=== PATIENT | male | born 1975 | race Caucasian/White ===

== ENCOUNTER 2019-06-20 05:16 | Inpatient (IN) | payer BC ==
[~2019-06-20] VITALS: Ht 172.7 cm; Wt 82.6 kg
--- NOTE | 2019-06-20 05:35 | NUR ---
PATIENT AMBULATED WITH STABLE GAIT. A/OX4 SPEECH CLEAR SPEAKS IN COMPLETE SENTENCES. PATIENT CAME FOR C/O RLQ ABD PAIN SINCE 1300 YESTERDAY. PAIN LEVEL 6/10 AND NON RADIATING. RESPIRATORY EVEN AND UNLABORED, REPORTS THAT HE IS RECOVERING FROM A COUGH THAT HE HAD OVER THE WEEKEND AND BELIEVES THAT THE PAIN/STRAIN IN HIS ABD COULD BE FROM THE COUGHING EPISODES. NO CARDIOVASCULAR DISTRESS NOTED, ALL PULSES PALPABLE. DENIES ANY N/V/D AT THIS TIME.
--- NOTE | 2019-06-20 05:42 | NUR ---
ERMD AT BEDSIDE MSE
[2019-06-20 05:51] LABS: *BILIRUBIN,URIN NEGATIVE (NEGATIVE); *BLOOD, URINE NEGATIVE (NEGATIVE); *CLARITY,URINE CLEAR (CLEAR); *COLOR,URINE YELLOW (YELLOW); *KETONES,URINE NEGATIVE (NEGATIVE); *UROBILINOGEN,URINE 0.2 E.U./dl (NORMAL); LEUKOCYTE ESTERASE ,URINE NEGATIVE (NEGATIVE); NITRITE, URINE NEGATIVE (NEGATIVE); UGLUCOSE NEGATIVE (NEGATIVE)
[2019-06-20] MEDS ORDERED: IV NORMAL SALINE 1000 ML BAG IV ONE ×2 (06:00→15:22)
[2019-06-20] MEDS ORDERED: KETOROLAC TROMETHAMINE 15 MG INJ IVP ONE (06:00)
[2019-06-20] MEDS ORDERED: KETOROLAC TROMETHAMINE 15 MG INJ ONE (06:06)
[2019-06-20 06:07] LABS: BASOPHILS % (AUTO) 0.1 % (0.0-2.0); HEMATOCRIT 43.7 % (36.7-47.1); HEMOGLOBIN 15.1 g/dL (12.5-16.3); LYMPHOCYTES # (AUTO) 1.3 K/uL (20.0-40.0); LYMPHOCYTES % (AUTO) 13.3 % (20.5-51.5); MEAN CORPUSCULAR HEMOGLOBIN 31.9 uug (23.8-33.4); MEAN CORPUSCULAR HGB CONC 34 g/dL (32.5-36.3); MEAN CORPUSCULAR VOLUME 92.7 fL (73.0-96.2); MONOCYTES % (AUTO) 10.3 % (0.0-11.0); NEUTROPHILS # (AUTO) 7.2 K/uL (1.8-8.9); NEUTROPHILS % (AUTO) 76.3 % (38.5-71.5); PLATELET COUNT (AUTO) 186 K/uL (152-348); RED BLOOD CELL COUNT(AUTO) 4.72 MIL/uL (4.06-5.63); WHITE BLOOD COUNT (AUTO) 9.5 K/uL (3.6-10.2)
[2019-06-20 06:23] LABS: CREATININE 0.9 mg/dL (0.6-1.3)
[2019-06-20 06:29] LABS: BILIRUBIN,DIRECT 0.1 mg/dL (0.0-0.2); BILIRUBIN,TOTAL 0.5 mg/dL (0.2-1.0); TOTAL PROTEIN, SERUM 7.7 g/dL (6.4-8.2)
[2019-06-20] MEDS ORDERED: KETOROLAC TROMETHAMINE 30 MG INJ IVP ONE (06:45)
[2019-06-20] MEDS ORDERED: KETOROLAC TROMETHAMINE 30 MG INJ ONE (06:51)
[2019-06-20] MEDS ORDERED: IV NORMAL SALINE 250 ML IV ONE (06:56)
[2019-06-20] MEDS ORDERED: SWABABLE VALVE TRANSFER SET EA MC ONE (06:56)
[2019-06-20] MEDS ORDERED: IOHEXOL 300MG/ML 100 ML INFUS..BTL ONE (06:56)
--- NOTE | 2019-06-20 06:57 | NUR ---
fill technician here to transport patient down for scan. NAD, VSS
--- NOTE | 2019-06-20 07:20 | NUR ---
DR. RAYA ON THE LINE WITH ERMD DISCUSSING CT SCAN.
--- NOTE | 2019-06-20 07:20 | NUR ---
PATIENT BACK IN ROOM FROM CT IN STABLE CONDITION.
--- NOTE | 2019-06-20 07:23 | NUR ---
PER ERMD PATIENT DOES HAVE APPENDICITIS, CALLING DR. CHOI (SURGERY) FOR CONSULT
[2019-06-20] MEDS ORDERED: PIPERACILLIN SODIUM/TAZOBACTAM 3.375 G in IV DEXTROSE 5% 50 ML IV ONE (07:30)
[2019-06-20] MEDS ORDERED: PIPERACILLIN/TAZOBACTAM/D5W 50 ML IV ONE (07:32)
--- NOTE | 2019-06-20 07:50 | NUR ---
[facility] CALLED AND REQUESTED FOR PANEL CALL Addendum: 06/20/19 at 0750 by REYES STEPHANIE MOTA ON THE LINE WITH PRANAY DISCUSSING PATIENT CASE
[2019-06-20] MEDS ORDERED: HYDROCODONE/APAP 5-325MG TABLET PO PRN (08:00)
[2019-06-20] MEDS ORDERED: MORPHINE SULFATE 2 MG/1 ML DISP.SYRIN IV PRN (08:00)
[2019-06-20] MEDS ORDERED: ACETAMINOPHEN 325 MG TABLET PO PRN (08:00)
[2019-06-20] MEDS ORDERED: ZOLPIDEM 5 MG TABLET PO PRN (08:00)
[2019-06-20] MEDS ORDERED: ONDANSETRON 4 MG/2 ML VIAL IV PRN ×2 (08:00→20:15)
[2019-06-20] MEDS ORDERED: IV NS 1000 ML 1,000 ML IV PRN (08:00)
[2019-06-20] MEDS ORDERED: MAGNESIUM HYDROXIDE 30 ML LIQUID UDC PO PRN (08:00)
--- NOTE | 2019-06-20 08:28 | NUR ---
PATIENT TRANSPORTED TO [facility] IN STABLE CONDITION. NAD VSS
[2019-06-20 08:58] VITALS: BP 137/94
--- NOTE | 2019-06-20 09:00 | NUR ---
RECEIVED PATIENT TO UNIT FROM ER. PATIENT IN STABLE CONDITION. COMPLAINS OF RT. LOWER QUAD PAIN. VS STABLE. NPO AT THIS TIME. NO SKIN PROBLEMS SEEN. ALL NEEDS MET. WILL CONTINUE TO MONITOR.
[2019-06-20] MEDS ORDERED: BUPIVACAINE PF 0.5% 30 ML VIAL ONE (12:53)
[2019-06-20] MEDS ORDERED: LIDOCAINE 1%-EPI 1:100,000 20 ML VIAL ONE (12:53)
[2019-06-20] MEDS ORDERED: SEVOFLURANE 250 ML BOTTLE ONE (12:56)
[2019-06-20] MEDS ORDERED: BACITRACIN ZINC OINT 15 GM TUBE ONE (13:20)
[2019-06-20] MEDS ORDERED: MIDAZOLAM HCL 2 MG/2 ML VIAL ONE (13:27)
[2019-06-20] MEDS ORDERED: FENTANYL CITRATE 250 MCG/5 ML AMPUL ONE (13:27)
[2019-06-20] MEDS ORDERED: ROCURONIUM BROMIDE 50 MG/5 ML VIAL ONE (13:28)
[2019-06-20] MEDS ORDERED: PIPERACILLIN SODIUM/TAZOBACTAM 3.375 G in IV DEXTROSE 5% 50 ML IV SCH (13:30)
--- NOTE | 2019-06-20 14:30 | NUR ---
PATIENT WENT DOWN TO THE SURGICAL UNIT FOR LAPROSCOPIC APPENDECTOMY. PATIENT STABLE AT TIME HE LEFT. CONSENT WAS NOT SIGNED BECAUSE PATENT WANTED TO SPEAK TO , OR JAE AWARE. LAST ANTIBIOTIC GIVEN WAS AT 0759.
[2019-06-20] MEDS ORDERED: PIPERACILLIN/TAZOBACTAM/D5W 3.375 G in IV DEXTROSE 5% 50 ML IV SCH (15:00)
[2019-06-20] MEDS ORDERED: IRR NORMAL SALINE IRRIGATION 2000 ML BOTTLE IR ONE (15:22)
[2019-06-20] MEDS ORDERED: LIDOCAINE-MPF 2% 5 ML VIAL MC ONE (15:22)
[2019-06-20] MEDS ORDERED: NEOSTIGMINE METHYLSULFATE 10 MG/10 ML VIAL IV ONE (15:22)
[2019-06-20] MEDS ORDERED: GLYCOPYRROLATE 0.2 MG/ML VIAL MC ONE (15:22)
[2019-06-20] MEDS ORDERED: SEVOFLURANE 250 ML BOTTLE IH ONE (15:22)
[2019-06-20] MEDS ORDERED: ONDANSETRON 4 MG/2 ML VIAL IV ONE (15:22)
[2019-06-20] MEDS ORDERED: PROPOFOL 200 MG/20 ML BOTTLE IV ONE (15:22)
[2019-06-20] MEDS ORDERED: METOCLOPRAMIDE HCL 10 MG/2 ML VIAL IV ONE (15:22)
[2019-06-20] MEDS ORDERED: DEXAMETHASONE SOD PHOSPHATE 4 MG INJ IV ONE (15:22)
[2019-06-20] MEDS ORDERED: CEFAZOLIN 1 G VIAL MC ONE (15:22)
[2019-06-20] MEDS ORDERED: KETOROLAC TROMETHAMINE 30 MG INJ IM ONE (15:22)
--- NOTE | 2019-06-20 18:30 | NUR ---
PATIENT RETURNED FROM SURGERY. ORDERS IN CHART. IVF STARTED PER ORDER. DENIES PAIN AT THIS TIME. REPORT TO BE GIVEN TO GREASE AND TALLOW PUMPER NURSE
[2019-06-20 18:39] VITALS: BP 125/70
[2019-06-20] MEDS: PIPERACILLIN/TAZOBACTAM/D5W 3.375 G in IV DEXTROSE 5% 50 ML IV SCH (18:53)
[2019-06-20 18:58] VITALS: BP 115/61
[2019-06-20] MEDS: IV LACTATED RINGERS SOLUTION 1,000 ML IV PRN (19:15)
[2019-06-20 20:00] VITALS: BP 101/55
[2019-06-20] MEDS ORDERED: HYDROCODONE/APAP 10-325 MG TABLET PO PRN (20:15)
[2019-06-20] MEDS: HYDROMORPHONE 1 MG/1 ML DISP.SYRIN IV PRN (21:18)
[2019-06-21] MEDS: HYDROMORPHONE 1 MG/1 ML DISP.SYRIN IV PRN (01:03)
[2019-06-21] MEDS: IV LACTATED RINGERS SOLUTION 1,000 ML IV PRN ×2 (01:41→08:29)
[2019-06-21] MEDS: PIPERACILLIN/TAZOBACTAM/D5W 3.375 G in IV DEXTROSE 5% 50 ML IV SCH ×2 (03:14→10:07)
[2019-06-21] MEDS: KETOROLAC TROMETHAMINE 15 MG INJ IVP PRN ×2 (03:25→10:27)
[2019-06-21 05:00] VITALS: BP 90/45
[2019-06-21 06:40] LABS: BASOPHILS % (AUTO) 0.2 % (0.0-2.0); HEMATOCRIT 38.8 % (36.7-47.1); HEMOGLOBIN 13.1 g/dL (12.5-16.3); LYMPHOCYTES # (AUTO) 1.1 K/uL (20.0-40.0); LYMPHOCYTES % (AUTO) 12.7 % (20.5-51.5); MEAN CORPUSCULAR HEMOGLOBIN 31.6 uug (23.8-33.4); MEAN CORPUSCULAR HGB CONC 34 g/dL (32.5-36.3); MEAN CORPUSCULAR VOLUME 93.8 fL (73.0-96.2); MONOCYTES # (AUTO) 0.5 K/uL (2.0-10.0); MONOCYTES % (AUTO) 6.4 % (0.0-11.0); NEUTROPHILS # (AUTO) 6.8 K/uL (1.8-8.9); NEUTROPHILS % (AUTO) 80.7 % (38.5-71.5); PLATELET COUNT (AUTO) 152 K/uL (152-348); RED BLOOD CELL COUNT(AUTO) 4.14 MIL/uL (4.06-5.63); WHITE BLOOD COUNT (AUTO) 8.5 K/uL (3.6-10.2)
[2019-06-21 06:48] LABS: MAGNESIUM 1.7 mg/dL (1.8-2.4); PHOSPHOROUS 3.8 mg/dL (2.5-4.9); POTASSIUM 3.6 mmol/L (3.5-5.1)
--- NOTE | 2019-06-21 06:54 | NUR ---
Pt rested well in between care; VSS; no acute distress; oral care done; incontinence care done; continue to monitor; safety maintained. Addendum: 06/21/19 at 0656 by FATIMAH SHEIKH RN not for this pt
--- NOTE | 2019-06-21 06:56 | NUR ---
Pt rested well in between care; no acute distress; c/o pain and addressed accordingly; pt also instructed and reinforce use of incentive spirometer; tolerated clear liqs.
--- NOTE | 2019-06-21 08:42 | NUR ---
Pt. resting in bed AOX4. IV in R AC 18 gauge intact patent running LR 150 mL/HR. Pt. on clear liquid diet. Encouraged pt. to use incentive spirometer each hour. Encourage pt. to ambulate. Pt. denies pain or discomfort. Pt. denies SOB or difficulty breathing. Will continue to monitor pt.
[2019-06-21] MEDS ORDERED: MAGNESIUM OXIDE 400 MG TABLET PO ONE (10:00)
[2019-06-21] MEDS ORDERED: IV NORMAL SALINE 500 ML IV ONE (10:00)
[2019-06-21] MEDS ORDERED: CIPR-262 PO (10:02)
[2019-06-21] MEDS ORDERED: HYDR-3326 PO (10:02)
[2019-06-21] MEDS ORDERED: METR500T PO (10:02)
[2019-06-21 11:14] VITALS: BP 101/59
[2019-06-21 15:06] VITALS: BP 107/64
--- NOTE | 2019-06-21 15:32 | NUR ---
Pt. is stable. Pt. to be discharged home. pt. will be discharged home with . Wheelchaired down by MILL WORKER. Discharge instructions given. Pt. understood and compliant with care. All discharge paperwork signed. All belongings with pt. and belongings list signed. Pt. will follow up with Dr. Traylor in 1 week.
--- NOTE | 2019-06-21 15:58 | NUR ---
Pt. d/cd down via wheelchair by PLASTER MACHINE TENDER. picked pt. up with car. Pt. arellano.
== END 2019-06-21 16:00 | disposition home or self-care (01) | DRG 342 ==
LOC: ER 05:23 → MEDSURG3 08:00
PROVIDERS: ADMIT Nurse Practitioner Acute Care; ATTEND Nurse Practitioner Acute Care
PROC: 0DTJ4ZZ Resection of Appendix, Percutaneous Endoscopic Approach (ICD-10-PCS; principal; 2019-06-20)
DX: K35.891 Other acute appendicitis without perforation, with gangrene (principal); J98.11 Atelectasis; K57.30 Diverticulosis of large intestine without perforation or abscess without bleeding; G89.29 Other chronic pain; M54.5 Low back pain; K66.0 Peritoneal adhesions (postprocedural) (postinfection); K38.1 Appendicular concretions; E86.0 Dehydration
CPT/HCPCS: 36415; 70030-TC; 71045; 83690; 83735; 84100; 85025; 85730; 93005; A4217; A4663; G0378; J0690; J1100; J1170; J1885; J2250; J2405; J2543; J2710; J2765; J3010; J3490; J7030; J7040; J7050; J7060; J7120; Q9967